=== PATIENT | female | born 1960 | race Caucasian/White ===

== ENCOUNTER → 2018-04-05 | Outpatient (CLI) | payer OTHER ==
[~2018-04-05] MED LIST: ANAPROX; DIOVAN; MUSCLE RELAXANT; NAPROSYN500 MG PO; NOLVADEX20 MG; NORCO 5-325 TA1 EAC1 PO
== END ==
LOC: M.RAD 08:15 → M.ULTRA 10:00 → M.RAD 07-05 10:00
DX: N63.20 Unspecified lump in the left breast, unspecified quadrant (principal); R92.0 Mammographic microcalcification found on diagnostic imaging of breast

== ENCOUNTER → 2018-10-14 | Outpatient (CLI) | payer OTHER ==
[2018-10-14 11:28] LABS: ABSOLUTE BASOPHILS 0.1 thou/uL (0.0-0.2); ABSOLUTE EOSINOPHILS 0.2 thou/uL (0.0-0.7); ABSOLUTE LYMPHOCYTES 1.7 thou/uL (0.8-5.3); ABSOLUTE MONOCYTES 0.4 thou/uL (0.0-1.2); ABSOLUTE NEUTROPHILS 3.9 thou/uL (1.6-8.1); BASOPHILS 1.1 %; HEMATOCRIT 39.7 % (37.0-47.0); HEMOGLOBIN 13.2 gm/dL (12.0-15.0); LYMPHOCYTES 27.2 %; MCH 26.3 pg (26.0-34.0); MCHC 33.3 g/dL (28.0-37.0); MCV 78.9 fL (80.0-100.0); MONOCYTES 5.8 %; NUCLEATED RBCS 0 /100WBC; PLATELET COUNT* 272 thou/uL (150-400); POLYS 62.9 %; RBC 5.03 mil/uL (4.20-5.00); RDW-CV 17.5 % (10.5-14.5); WBC 6.2 thou/uL (4.0-11.0)
[2018-10-14 11:52] LABS: CALCIUM 9.6 mg/dL (8.5-10.1); CREATININE 0.8 mg/dL (0.6-1.3); POTASSIUM 3.8 mmol/L (3.5-5.1); TOTAL BILIRUBIN 1.4 mg/dL (<0.1-1.0); TOTAL PROTEIN 7.9 g/dL (6.4-8.2)
== END ==
LOC: M.RAD 09:30 → M.LAB 09:30 → M.RAD 10:00
PROVIDERS: Radiology Radiation Oncology
DX: D05.11 Intraductal carcinoma in situ of right breast (principal)

== ENCOUNTER → 2018-10-24 | Outpatient (CLI) | payer OTHER | LOC: M.ULTRA 08:44 | DX: R16.2 Hepatomegaly with splenomegaly, not elsewhere classified (principal); K80.80 Other cholelithiasis without obstruction; R94.5 Abnormal results of liver function studies; R10.9 Unspecified abdominal pain ==

== ENCOUNTER → 2018-12-02 | Day surgery (SDC) | payer OTHER ==
[~2018-12-02] MED LIST changes: -DIOVAN; +DIOVAN160 MG PO; +NORCO 5-325 TA1 EACH PO
[2018-12-02 06:26] LABS: HEMATOCRIT 40.3 % (37.0-47.0); HEMOGLOBIN 13.3 gm/dL (12.0-15.0); MCH 26.9 pg (26.0-34.0); MCV 81.5 fL (80.0-100.0); MPV 8.2 fl. (7.2-11.1); RBC 4.94 mil/uL (4.20-5.00); RDW-CV 15.3 % (10.5-14.5); WBC 6.6 thou/uL (4.0-11.0)
[2018-12-02 06:35] LABS: ALBUMIN 3.9 g/dL (3.4-5.0); CALCIUM 9.3 mg/dL (8.5-10.1); CREATININE 0.8 mg/dL (0.6-1.3); POTASSIUM 3.5 mmol/L (3.5-5.1); TOTAL BILIRUBIN 1.2 mg/dL (<0.1-1.0); TOTAL PROTEIN 7.9 g/dL (6.4-8.2)
--- NOTE | 2018-12-02 15:59 | EKG ---
[place] [address] ELECTROCARDIOGRAM REPORT Name: MAHESH BLACKBURN Room: [facility].#: [id number] Admission: 12/02/18 Attend Phys: Christos Saul DO Discharge: Date of : 58 Report #: [id number] THIS REPORT FOR: //name// [facility] Test Date: 2018-12-02 Test Time: 07:37:37 Pat Name: MAHESH BLACKBURN Department: Room: Gender: F Hat Cutter: : 1960 Requested By: Christos Saul Order Number: [id number] Reading MD: Nacho Guardado Measurements Intervals [place] Rate: 55 P: 51 WI: 160 QRS: 8 QRSD: 100 T: 30 QT: 430 QTc: 412 Interpretive Statements Sinus rhythm Compared to ECG 01/06/2016 08:32:06 No significant changes Electronically Signed On 12-02-2018 15:59:38 REGISTERED DENTAL ASSISTANT RDA by Nacho Guardado [email or web address] <ELECTRONICALLY SIGNED> By: Nacho Guardado MD, [facility] 12/02/18 1559 0737 0737 Nacho Guardado MD, FACC /EPI
--- NOTE | 2018-12-06 15:26 | PATH ---
[facility] [address] [place] [address] PATHOLOGY RPT PROCEDURE Name: MAHESH BLACKBURN Room: [facility].#: [id number] Admission: 12/02/18 Date of : 58 Discharge: Report #: [id number] Path Case #: [id number] [facility] Accession Number: [id number] . 01 Material submitted: . GALLBLADDER . 01 Clinical history: . Preop DX: Calculus gallbladder without cholecystitis without obstruction Postop DX: Calculus gallbladder . 02 Diagnosis: Gallbladder: - Chronic cholecystitis and cholelithiasis. (ALTHEA:pit 12/04/2018) QTP/12/04/2018 . 02 Electronically signed: . Hilton Levin MD, Pathologist NPI- [id number] . 01 Gross description: . Received in formalin labeled "Mahesh Blackburn, gallbladder," is an intact, turgid gallbladder measuring 7.9 x 3.4 x 3.0 cm in greatest dimensions. The serosal surface is smooth to shaggy and blue-green in appearance. Opening the specimen reveals a velvety, dark green mucosa measuring 0.1 cm in thickness, with an average gallbladder wall thickness of 0.1 cm. No polyps or nodules are noted grossly. A single black, granular calculus is present within the specimen, measuring 1.3 cm in maximum dimension. Parts Driver sections of the infundibulum, body and fundus are submitted in cassette A1. (DAC; 12/03/2018) XDC/XDC . 02 Pathologist provided ICD-10: K80.10 . 02 CPT . 298312 Specimen Comment: Report sent to , DR CHARLES / DR LORENZO Specimen Comment: A duplicate report has been generated due to demographic updates. Performed at: [address] [id number] MD Jhon Kaufman MD Phone: [phone] Performed at: [address] [place] [address] PATHOLOGY RPT PROCEDURE Name: MAHESH BLACKBURN Room: [facility].#: [id number] Admission: 12/02/18 Date of : 58 Discharge: Report #: [id number] Path Case #: [id number] [address], [place] [id number] MD Hilton Levin MD Phone: [phone]
--- NOTE | 2018-12-19 00:51 | OP ---
[address] [address] OPERATIVE REPORT Name: MAHESH BLACKBURN Room: [facility]#: [id number] Admission: 12/02/18 Attend Phys: Christos Saul DO Discharge: Date of : 58 Report #: [id number] THIS REPORT FOR: //name// CC: Christos Barton DATE OF SERVICE: 12/02/2018 PREOPERATIVE DIAGNOSIS: Symptomatic cholelithiasis. POSTOPERATIVE DIAGNOSIS: Symptomatic cholelithiasis. PROCEDURE: Da Perez robotic-assisted laparoscopic cholecystectomy with Firefly technology. SURGEON: Christos Saul DO DOUGH CUTTING MACHINE OPERATOR: Villa Sargent DO ANESTHESIA: General endotracheal. ESTIMATED BLOOD LOSS: Less than 20 mL. COMPLICATIONS: None. DESCRIPTION OF PROCEDURE: After obtaining proper consents and discussing risks and complications with the patient, she was taken to the operating room, laid in the supine position and administered general endotracheal anesthetic. She was then prepped and draped in the usual fashion. We did administer 5 mg of indocyanine green intravenously prior to induction of anesthesia. A timeout was performed. We confirmed the appropriate patient and procedure. Preoperative antibiotics had been given. SCDs were in place. All necessary equipment was within the operating room. We then made a small supraumbilical skin incision after the patient was prepped and draped in the usual sterile fashion. This was carried down through the skin into the subcutaneous tissue using electrocautery for hemostasis. Once the fascia was encountered, it was incised along the midline, grasped and elevated with Tereza clamps and the peritoneum was then bluntly opened using a hemostat. 2-0 Vicryl sutures were placed in a [id number] fashion to secure the da Perez camera port, which was then inserted. Once the camera port was inserted, insufflation was begun. Once insufflation was complete, full visual inspection of the anterior abdominal organs was performed. This revealed no significant gross abnormalities other than a dilated, somewhat thick walled appearing gallbladder and a mildly fatty appearing liver. We then placed the patient [place] [address] OPERATIVE REPORT Name: MAHESH BLACKBURN Room: [facility].#: [id number] Admission: 12/02/18 Attend Phys: Christos Saul DO Discharge: Date of : 58 Report #: [id number] and rotated to the left. An 8 mm da Perez port was placed in the left upper quadrant. Two 8-mm da Perez ports were placed in the right upper quadrant. We then docked the da Perez robot. Once the robot was docked, all the instruments were inserted. Two Cadiere graspers were placed in the right upper quadrant and a hook cautery in the left upper quadrant. I then broke scrub and went on console. Once on console, I was able to elevate the gallbladder using the Cadiere. I then identified Jazzmine's pouch, which was grasped and elevated. We used Firefly to identify the cystic duct and common hepatic duct and common bile duct prior to any dissection. This was somewhat difficult to see because of some fat overlying but I was able to see the common hepatic duct and common bile duct. Then, under direct vision, the hepatoduodenal ligament was stripped down until I was able to visualize the cystic duct and cystic artery as they coursed directly into the gallbladder. These were both dissected free. We obtained a critical view of safety before clipping any of the ducts or arteries. I then clipped the cystic duct proximally and distally and the cystic artery proximally and distally and then divided the duct and artery using electrocautery. Posterior to the artery, I did identify what appeared to be a small accessory cystic duct. This was confirmed using Firefly technology as well and seen coursing directly into the gallbladder. It was clipped proximally and distally and then divided. I then dissected the gallbladder from the liver bed using electrocautery with the hook. Once the gallbladder was completely removed, it was grasped with the grasper. I then rescrubbed and went back to the patient's bedside. The da Perez robot was undocked. We inserted a 5 mm EndoCatch bag through the umbilical incision. The camera was placed into one of the other trocars and then the gallbladder was placed into the EndoCatch bag. The insufflation was then stopped. All air was released. Trocars were removed. The gallbladder was removed through the umbilical incision. We then closed the umbilical fascia using the 2 previously placed 0 Vicryl sutures plus 2 additional 0 Vicryl sutures. Skin incisions were all closed using 4-0 Monocryl subcuticular stitches. The wounds were injected with 0.5% Marcaine without epinephrine. The patient tolerated the procedure well, was awakened in the operating room and transported to recovery room in stable condition. Sponge, needle and instrument counts were all correct at the end of the procedure. <ELECTRONICALLY SIGNED> By: Christos Saul DO 12/19/18 0051 0941 1020Adam Brian Saul, DO /nt
== END | disposition home or self-care (01) ==
LOC: M.SUR 01:45
PROVIDERS: Surgery
DX: K80.10 Calculus of gallbladder with chronic cholecystitis without obstruction (principal); Z79.899 Other long term (current) drug therapy; Z79.891 Long term (current) use of opiate analgesic; Z98.890 Other specified postprocedural states

== ENCOUNTER → 2019-08-05 | Outpatient (CLI) | payer OTHER | LOC: M.ULTRA 07:01 | DX: R17 Unspecified jaundice (principal); Z90.49 Acquired absence of other specified parts of digestive tract ==

== ENCOUNTER → 2019-10-15 | Outpatient (CLI) | payer OTHER ==
[2019-10-15 09:59] LABS: ABSOLUTE EOSINOPHILS 0.2 thou/uL (0.0-0.7); ABSOLUTE LYMPHOCYTES 1.9 thou/uL (0.8-5.3); ABSOLUTE MONOCYTES 0.5 thou/uL (0.0-1.2); ABSOLUTE NEUTROPHILS 3.9 thou/uL (1.6-8.1); BASOPHILS 0.7 %; EOSINOPHILS 2.9 %; HEMATOCRIT 38.4 % (37.0-47.0); HEMOGLOBIN 13.1 gm/dL (12.0-15.0); LYMPHOCYTES 29.3 %; MCH 27.8 pg (26.0-34.0); MCHC 34.1 g/dL (28.0-37.0); MCV 81.6 fL (80.0-100.0); MONOCYTES 7.1 %; MPV 8.3 fl. (7.2-11.1); NUCLEATED RBCS 0 /100WBC; PLATELET COUNT* 257 thou/uL (150-400); RBC 4.71 mil/uL (4.20-5.00); WBC 6.5 thou/uL (4.0-11.0)
[2019-10-15 10:16] LABS: ALBUMIN 3.9 g/dL (3.4-5.0); CALCIUM 8.8 mg/dL (8.5-10.1); CREATININE 0.8 mg/dL (0.6-1.3); TOTAL BILIRUBIN 1.4 mg/dL (<0.1-1.0); TOTAL PROTEIN 7.3 g/dL (6.4-8.2)
== END ==
LOC: M.RAD 09:22
PROVIDERS: Radiology Radiation Oncology
DX: D05.11 Intraductal carcinoma in situ of right breast (principal); R92.1 Mammographic calcification found on diagnostic imaging of breast; Z98.890 Other specified postprocedural states

== ENCOUNTER → 2019-11-03 | Outpatient (CLI) | payer OTHER | LOC: M.MRI 10:11 | DX: K76.0 Fatty (change of) liver, not elsewhere classified (principal); N28.1 Cyst of kidney, acquired; Z90.49 Acquired absence of other specified parts of digestive tract ==

== ENCOUNTER → 2020-10-18 | Outpatient (CLI) | payer OTHER ==
[2020-10-18 10:11] LABS: ALBUMIN 3.9 g/dL (3.4-5.0); CALCIUM 9.5 mg/dL (8.5-10.1); CREATININE 0.8 mg/dL (0.6-1.3); POTASSIUM 4.3 mmol/L (3.5-5.1); TOTAL BILIRUBIN 1.5 mg/dL (<0.1-1.0); TOTAL PROTEIN 7.5 g/dL (6.4-8.2)
== END ==
LOC: M.RAD 09:41
PROVIDERS: ATTEND Radiology Radiation Oncology
DX: Z08 Encounter for follow-up examination after completed treatment for malignant neoplasm (principal); Z85.3 Personal history of malignant neoplasm of breast; Z92.3 Personal history of irradiation; Z98.890 Other specified postprocedural states

== ENCOUNTER → 2021-10-18 | Outpatient (CLI) | payer OTHER ==
[2021-10-18 09:59] LABS: ABSOLUTE BASOPHILS 0.1 thou/uL (0.0-0.2); ABSOLUTE EOSINOPHILS 0.2 thou/uL (0.0-0.7); ABSOLUTE LYMPHOCYTES 2.1 thou/uL (0.8-5.3); ABSOLUTE MONOCYTES 0.5 thou/uL (0.0-1.2); ABSOLUTE NEUTROPHILS 4.7 thou/uL (1.6-8.1); BASOPHILS 0.9 %; EOSINOPHILS 2.9 %; HEMATOCRIT 39.4 % (37.0-47.0); HEMOGLOBIN 13.1 gm/dL (12.0-15.0); LYMPHOCYTES 27.3 %; MCH 27.5 pg (26.0-34.0); MCHC 33.2 g/dL (28.0-37.0); MCV 82.9 fL (80.0-100.0); MONOCYTES 7.1 %; MPV 8.1 fl. (7.2-11.1); NUCLEATED RBCS 0 /100WBC; PLATELET COUNT* 261 thou/uL (150-400); POLYS 61.8 %; RBC 4.75 mil/uL (4.20-5.00); RDW-CV 14.9 % (10.5-14.5); WBC 7.6 thou/uL (4.0-11.0)
[2021-10-18 10:44] LABS: ALBUMIN 3.8 g/dL (3.4-5.0); CALCIUM 8.9 mg/dL (8.5-10.1); CREATININE 0.8 mg/dL (0.6-1.3); POTASSIUM 4.5 mmol/L (3.5-5.1); TOTAL BILIRUBIN 1.3 mg/dL (<0.1-1.0); TOTAL PROTEIN 6.9 g/dL (6.4-8.2)
== END ==
LOC: M.RAD 09:25
PROVIDERS: ATTEND Radiology Radiation Oncology
DX: Z12.31 Encounter for screening mammogram for malignant neoplasm of breast (principal); Z85.3 Personal history of malignant neoplasm of breast